=== PATIENT | male | born 1955 | race Caucasian/White ===

== ENCOUNTER 2020-11-20 14:35 | Outpatient (CLI) | payer MEDICARE, SELFPAY ==
--- NOTE | ~2020-11-20 | CT_ITS ---
EXAMINATION:CT lung screening DATE: 11/20/2020 14:56 INDICATION: Personal history of tobacco dependence. Smoker who quit less than 1 year ago with 35 pack year history. TECHNIQUE: Computed tomography (CT) of the chest was performed without intravenous contrast. Automate d exposure control and iterative reconstruction technique were employed. The dose-length product (DLP ) was 473.81 mGy-cm. COMPARISON: Chest CT 06/14/2018 FINDINGS: There is mild atelectasis bilaterally. A calcified left lung nodule is consistent with old granulomatous disease. No pleural effusion. There is a coarse calcification in left thyroid lobe. The heart size is normal. There are coronary artery calcifications. No pericardial effusion. There is mi ld thoracic spondylosis. IMPRESSION: 1. Lung-RADS category 1: Negative. Continue annual screening with noncontrast low-dose chest CT in 12 months. Reviewed, dictated and finalized at location A. IMPRESSION: 1. Lung-RADS category 1: Negative. Continue annual screening with noncontrast l ow-dose chest CT in 12 months.
== END 2020-11-20 14:36 | disposition home or self-care (01) ==
PROVIDERS: PCP Internal Medicine; Visit Provider Internal Medicine
DX: Z12.2 Encounter for screening for malignant neoplasm of respiratory organs (principal); Z87.891 Personal history of nicotine dependence
CPT/HCPCS: 71271

== ENCOUNTER 2021-12-18 23:27 | Inpatient (IN) | payer MEDICARE, SELFPAY ==
--- NOTE | ~2021-12-18 | CT_ITS ---
EXAMINATION: CTA chest PE protocol EXAM DATE: 12/19/2021 12:44 INDICATION: +DDimer, CP . TECHNIQUE: Spiral CTA of the chest (pulmonary arteries) was performed with 100 cc Omnipaque 350 intr avenous contrast injection. Images were acquired during the pulmonary arterial phase. Coronal maxi mum intensity projection 3D-reconstructions were created by the technologist on dedicated workstation . Axial, coronal and sagittal reformatted images were reviewed. The dose-length product (DLP) for t his examination was 999.19 mGy-cm. The exposure was tailored according to patient size (auto mA exp osure control), and iterative reconstruction (ASIR) was used as additional dose reduction technique. Comparison is made to prior examination from 11/20/2020. FINDINGS: Pulmonary arteries are well opacified and without intraluminal filling defects. No thora cic aortic dissection. There is left lower lobe lateral subsegmental opacity measuring about 4 cm wi th some surrounding groundglass margins, appearance is most consistent with pneumonia but follow-up t o resolution is indicated to exclude cancer. This was not present on CT scan 2020. There are other bi lateral perihilar regions of groundglass density consistent with acute infection. There are no pleural or pericardial effusions. There is some endobronchial left basilar debris. Th ere is no mediastinal, hilar or axillary lymphadenopathy. There is no pneumothorax. Heart normal in size. There is mild coronary arterial calcification, arterial sclerosis. There is incompletely imaged partially exophytic mass off of the left kidney anterolaterally, hemorrhagic cyst versus renal cell cancer. There is thoracic spondylosis without osteoblastic or osteolytic lesions identified. IMPRESSION: 1. Incidental incompletely imaged left renal hemorrhagic cyst or cancer. Follow-up CT or MRI abdomen without and with contrast recommended. 2. Multifocal groundglass airspace disease and subsegmental region left lower lobe consolidation. Mo st likely pneumonia. Consider follow-up chest CT in 1-3 months. 3. No pulmonary emboli suspected. Reviewed, dictated and finalized at location B. IMPRESSION: 1. Incidental incompletely imaged left renal hemorrhagic cyst or cancer. Follo w-up CT or MRI abdomen without and with contrast recommended. 2. Multifocal groundglass airspace disease and subsegmental region left lower lobe consolidation. Most likely pneumonia. Consider follow-up chest CT in 1-3 m [facility]. 3. No pulmonary emboli suspected.
--- NOTE | ~2021-12-18 | NM_ITS ---
EXAMINATION: NM rama stress w perfusion DATE: 12/19/2021 14:49 INDICATION: Chest pain. TECHNIQUE: Rest images were obtained following intravenous administration of 9.7 mCi Tc99m tetrofosmi n (Myoview). The patient was infused intravenously with Lexiscan (regadenoson). Then, 32 mCi Tc99m te trofosmin (Myoview) was administered intravenously, and supine and prone stress images were obtained. Data was reconstructed into short axis and horizontal and vertical long axis SPECT images. Gated SPE CT images were also obtained. COMPARISON: Chest CT 12/19/2021 FINDINGS: There is a small, mild, fixed perfusion defect involving mid inferior segment of left ventr icle, consistent with infarct. No reversible boluses suggest ischemia. There is no segmental wall mo tion abnormality. Left ventricular ejection fraction measures >70%. IMPRESSION: 1. Small area of mild infarct involving mid inferior segment of left ventricle. 2. Normal left ventricular ejection fraction measuring >70%. Reviewed, dictated and finalized at location A.
--- NOTE | ~2021-12-18 | XR_ITS ---
XR chest 2V DATE: 12/18/2021 23:54 INDICATION: Chest pain TECHNIQUE: PA and lateral views COMPARISON: 11/20/2020 CT lung screening FINDINGS: Normal heart size. No hilar or mediastinal enlargement. No pulmonary infiltrate or consol idation, pulmonary vascular congestion or pleural effusion or pneumothorax. There is mild dextroscoliosis and degenerative spurring of the thoracic spine. IMPRESSION: No active cardiopulmonary disease Reviewed, dictated and finalized at location A.
--- NOTE | ~2021-12-18 | US_ITS ---
EXAMINATION: US venous doppler [facility] DATE: 12/19/2021 12:56 INDICATION: Chest pain TECHNIQUE: Oh scale images without and with compression and Doppler images of the bilateral lower e xtremity veins were obtained. COMPARISON: 02/15/2018 FINDINGS: The right common femoral vein, profunda femoral vein, femoral vein, popliteal vein, peroneal trunk, p osterior tibial veins, and greater saphenous vein are patent. The left common femoral vein, profunda femoral vein, femoral vein, popliteal vein, peroneal trunk, po sterior tibial veins, and greater saphenous vein are patent. IMPRESSION: 1. Patent bilateral lower extremity veins. No evidence of deep venous thrombosis. Reviewed, dictated and finalized at location A. IMPRESSION: 1. Patent bilateral lower extremity veins. No evidence of deep venous thrombosi s.
--- NOTE | 2021-12-18 23:30 | ECG_ITS ---
Measurements Intervals [place] Rate: 94 P: 62 RI: 148 QRS: 12 QRSD: 90 T: 56 QT: 266 QTc: 333 Interpretive Statements SINUS RHYTHM WITH OCCASIONAL VENTRICULAR PREMATURE COMPLEXES NONSPECIFIC T-WAVE ABNORMALITY ABNORMAL ECG NO PREVIOUS ECG AVAILABLE FOR COMPARISON Electronically Signed On 12-19-2021 15:43:53 CDT by Keo Ochoa M.D.
[2021-12-18 23:32] VITALS: BP 134/80; PULSE 98; RESP 17; TEMP 37.6; O2SAT 94
[2021-12-18 23:36] VITALS: PULSE 97; RESP 13; O2SAT 90
[2021-12-18 23:45] VITALS: PULSE 97; RESP 17; O2SAT 93
[2021-12-18 23:46] VITALS: BP 135/100; PULSE 95; RESP 20; O2SAT 90
[2021-12-18 23:51] LABS: Basophils Percent Auto 0.3 % (0.2-1.2); Eosinophils Absolute Auto 0.1 K/mm3 (0-0.3); Eosinophils Percent Auto 0.8 % (0-4.4); Hematocrit 45.3 % (42.0-52.0); Hemoglobin 14.8 g/dL (14.0-18.0); Immature Granulocyte Absolute 0.09 K/mm3 (0.00-0.031); Immature Granulocyte Percent A 0.6 % (0-0.5); Lymphocytes Absolute Auto 1.83 K/mm3 (0.9-3.2); Lymphocytes Percent Auto 13.2 % (18.3-44.2); Mean Corpuscular HGB Conc 32.7 g/dl (32-36); Mean Corpuscular Hemoglobin 31.2 pg (26-34); Mean Corpuscular Volume 95.6 fl (80-100); Mean Platelet Volume 11.3 fl (7.4-10.4); Monocytes Absolute Auto 1.3 K/mm3 (0.1-0.6); Monocytes Percent Auto 9.3 % (2.6-8.5); Neutrophils Absolute Auto 10.5 K/mm3 (1.3-6.7); Neutrophils Percent Auto 75.8 % (45.5-73.1); Platelet Count Result 206 k/mm3 (150-375); Red Blood Count 4.74 M/mm3 (4.6-6.20); Red Cell Distribution Width 13.6 % (11.5-14.5); White Blood Count 13.9 K/mm3 (4.5-10.0)
[2021-12-19] VITALS (13 sets, daily range): BP systolic 137–182; BP diastolic 61–96; PULSE 76–89; RESP 15–20; TEMP 36.3–36.9; O2SAT 91–94; BMI 37.5; BMI 38.1
--- NOTE | 2021-12-19 | ECHO_ITS ---
Patient Info Name: Denver Beckford Age: 66 years : 1955 Gender: Male Ht: 74 in Wt: 296 lbs BSA: 2.70 m2 HR: 78 bpm BP: 137 / 83 mmHg Heart Rhythm: Sinus Rhythm Exam Date: 12/19/2021 11:45 AM Exam Location: [facility] Pulmonary Patient Status: Inpatient Admit Date: 12/19/2021 Staff Ordering Physician: Keo Ochoa MD Manufacturing Engineering Manager: Hector Giordano, NINO, RT Attending Provider: Saurav Salter MD Referring Physician: Don OVERTON; Exam Type: CA echo doppler color flow Study Info Indications R07.9 - Chest pain, unspecified Complete two-dimensional, color flow and Doppler transthoracic echocardiogram is performed. Summary 1. Complete two-dimensional, color flow and Doppler transthoracic echocardiogram is performed. 2. Left ventricular chamber dimension is normal. 3. Left ventricular systolic function is normal, estimated at 60-65%. 4. There is mildly increased left ventricular wall thickness. 5. The left ventricular diastolic function is grade I diastolic dysfunction. 6. Right ventricular chamber dimension is mildly enlarged. 7. Left atrial chamber dimension is mildly enlarged. 8. There is mild mitral valve regurgitation. 9. There is mild tricuspid valve regurgitation. 10. Dilated inferior vena cava with <50% collapse upon inspiration consistent with elevated right atrial pressure, 15 mmHg. Left Ventricle Left ventricular chamber dimension is normal. Left ventricular systolic function is normal, estimated at 60-65%. There is mildly increased left ventricular wall thickness. The left ventricular diastolic function is grade I diastolic dysfunction. Right Ventricle Right ventricular chamber dimension is mildly enlarged. Right ventricular systolic function is normal. Left Atria Left atrial chamber dimension is mildly enlarged. Right Atria Right atrial chamber dimension is normal. Atrial Septum Intact interatrial septum visualized by color flow imaging. Aortic Valve The aortic valve is trileaflet. There is mild aortic valve sclerosis. There is no aortic valve stenosis. There is trace aortic valve regurgitation. Pulmonic Valve The pulmonic valve is normal. There is no pulmonic valve stenosis. There is trace pulmonic regurgitation. Mitral Valve The mitral valve has normal leaflets. There is no mitral valve stenosis. There is mild mitral valve regurgitation. Tricuspid Valve The tricuspid valve leaflets are normal. There is no significant tricuspid valve stenosis. There is mild tricuspid valve regurgitation. Pericardium/Pleural The pericardium appears normal. There is no pericardial effusion. Inferior Vena Cava Dilated inferior vena cava with <50% collapse upon inspiration consistent with elevated right atrial pressure, 15 mmHg. Aorta The aortic root size at the sinus of Valsalva is normal. Left Ventricular Outflow Tract Name Value Normal LVOT 2D LVOT Diameter 2.0 cm LVOT Doppler LVOT Peak Gradient 9 mmHg LVOT Mean Gradient 5 mmHg LVOT VTI 27 cm LVOT V
[2021-12-19 00:02] LABS: Alanine Aminotransferase 23 U/L (4-50); Albumin Level 4.8 g/dL (3.5-5.1); Alkaline Phosphatase 71 U/L (38-126); Anion Gap 13 mmol/L (8-16); Aspartate Amino Transferase 27 U/L (17-59); Bilirubin,Total 0.9 mg/dL (0.2-1.3); Blood Urea Nitrogen 16 mg/dL (9-20); Calcium 9.6 mg/dL (8.4-10.2); Carbon Dioxide 25 mmol/L (22-30); Chloride 102 mmol/L (98-107); Estimated CRCL calculation 101 ml/min; Estimated Glomerular Filt Rate > 60; Glucose 139 mg/dL (65-110); Lipase 42 U/L (23-300); Potassium 3.2 mmol/L (3.4-5.0); Sodium 140 mmol/L (137-145)
[2021-12-19 00:03] LABS: INR 1.1; Partial Thromboplastin Time 32.8 SECONDS (22.3-36.8); Prothrombin Time 13.4 Seconds (11.1-14.7)
[2021-12-19 00:13] LABS: Troponin I < 0.012 ng/mL (0.000-0.034)
--- NOTE | 2021-12-19 00:25 | ED.CHESTPAIN ---
HPI - Chest Pain General Chief Complaint: Chest Pain Stated Complaint: Chest pain Time Seen by Provider: 12/18/21 23:50 Source: patient Mode of arrival: ambulatory Limitations: no limitations History of Present Illness HPI narrative: 58-year-old male presents emergency room secondary to chest pain. Patient was out playing golf in [place] when he developed some chest discomfort there when he was plan. He is continue to have these episodes of discomfort. Associated with them he gets very short of breath. States she just been feeling fatigued and rundown lately. There is an extensive history of coronary artery disease in his family. Patient has multiple risk factors including obesity, diabetes, hypertension, as well as hypercholesterolemia. He has never had a cardiac work-up or evaluation in the past. He does smoke a cigar a day. States when he gets up and exerts himself he is getting discomfort in his chest. Related Data Home Medications Medication Instructions Recorded Confirmed omega-3 fatty acids 1,000 mg 1,000 mg PO BID 12/08/19 11/06/21 capsule cholecalciferol (vitamin D3) 250 250 mcg PO DAILY 05/16/20 11/06/21 mcg (10,000 unit) capsule Allergies Allergy/AdvReac Type Severity Reaction Status Date / Time Penicillins Allergy Unknown Unknown Verified 12/18/21 23:48 Sulfa (Sulfonamide Allergy Unknown Unknown Verified 12/18/21 23:48 Antibiotics) Review of Systems Review of Systems: CONSTITUTIONAL: Denies fever, chills, or sweats. EYES: Denies visual changes, redness, or discharge. ENT: Denies rhinorrhea, congestion, sore throat, or otalgia. CARDIOVASCULAR: Patient is having episodes of chest pressure and pain. Denies any palpitations or edema. RESPIRATORY: Denies cough. Having shortness of breath associated with chest pain GASTROINTESTINAL: Denies abdominal pain, nausea, vomiting, or diarrhea. GENITOURINARY: Denies dysuria or hematuria. SKIN: Denies rash or itching. MUSCULOSKELETAL: Denies back pain, joint pain, or myalgia. NEUROLOGIC: Denies headache, numbness, or weakness. PSYCHIATRIC: Denies anxiety or depression. [facility] Past Medical History Medical History Actinic keratosis BMI 38.0-38.9,adult BMI 39.0-39.9,adult Depression DM type 2 (diabetes mellitus, type 2) Encounter for Medicare annual wellness exam Encounter for routine adult health examination with abnormal findings Encounter for routine adult health examination without abnormal findings Encounter for special screening examination for neoplasm of prostate Erectile dysfunction Erectile dysfunction of organic origin Follow up HTN (hypertension) Hx of colonic polyps Hyperlipidemia Hypertension Hypogonadism Hypogonadism male Obesity On jail drug therapy VIMAL on CPAP Personal history of nicotine dependence Visual floaters Surgical History Surgical History History of left knee replacement Family History Family History Grandparent Diabetes mellitus Family history of cardiovascular disease Family history of malignant neoplasm Mother Family history of Alzheimer's disease Social History Social History Smoking status: Former smoker Smoking end date: 09/06/16 Exam Narrative: APPEARANCE: Well appearing, no pain or distress, well-nourished. Patient is obese Head normocephalic and atraumatic. EYES: PERRLA/EOMI, conjunctivae very clear. NOSE: Normal with no drainage EARS:TMS clear [place] Oh, with good light reflex. THROAT: Pharynx clear, no exudate. NECK: Supple. No adenopathy, no masses. RESPIRATORY: Airway patent, respirations nonlabored. Clear to auscultation bilaterally, no rales, rhonchi, wheezing. CARDIOVASCULAR: Regular rate and rhythm without murmurs, rubs, or gallops. ABDOMINAL: Soft, nontender, nondist
--- NOTE | 2021-12-19 00:43 | PM.IMHP ---
H&P: HPI History of Present Illness Date/Time: 12/19/21 00:43 Chief Complaint: Chest pain Narrative: This is a 66-year-old male with past medical history significant for obesity, hypertension, tobacco dependence, dyslipidemia. Patient presents to the emergency room due to chest pain localized to the precordial area nonradiating. Patient just came back from a trip to [place]. Pain Hurst remain constant for the last several hours. Patient has a persistent cough productive of clear sputum at times, which is his normal, denies any fevers, any rigors, any chills ,any dizziness ,syncope, near syncope, leg pain ,leg swelling, no PND, no orthopnea ,no nausea, no vomiting, no diarrhea ,no abdominal pain. Preliminary workup has been essentially nonrevealing. Patient has been admitted for further evaluation management and treatment. Review of Systems Review of Systems: Chest pain Constitutional: Constitutional: Denies chills, Denies fever(s), Denies night sweats and Denies weakness Eyes: Eyes: Denies change in vision ENT: Denies dysphagia, Denies vertigo, Denies dizziness, Denies nasal congestion, Denies nasal discharge, Denies nasal obstruction, Denies odynophagia and Denies post nasal drip Cardiovascular: Cardiovascular: Reports chest pain, Denies diaphoresis, Denies pedal edema, Denies claudication, Denies leg edema, Denies lightheadedness, Denies radiating jaw, neck or arm pain, Denies palpitations, Denies dyspnea on exertion, Denies orthopnea and Denies paroxysmal nocturnal dyspnea Respiratory: Respiratory: Denies change in phlegm color and Reports cough Gastrointestinal: Gastrointestinal: Denies abdominal pain, Denies dyspepsia, Denies heartburn, Denies nausea and Denies vomiting Genitourinary: Genitourinary: Denies dysuria Musculoskeletal: Musculoskeletal: Denies back pain, Denies arthralgias, Denies joint swelling and Denies muscle weakness Integumentary/Breasts: Skin/Breast: Denies rash Neurologic: Denies vertigo, Denies dizziness, Denies focal weakness and Denies Sensory deficit (Neuro) Psychiatric: Psychiatric: Reports no additional psychiatric complaints and Reports as per HPI Endocrine: Endocrine: Denies cold intolerance, Denies fatigue, Denies flushing, Denies heat intolerance, Denies polyphagia, Denies polydipsia, Denies polyuria and Denies palpitations Hematologic/Lymphatic: Hematologic/Lymphatic: Reports no additional hematologic/lymphatic complaints and Reports as per HPI Allergic/Immunologic: Allergic/Immunologic: Reports no additional allergic/immunologic complaints and Reports as per HPI [facility] Past Medical History Medical History Actinic keratosis BMI 38.0-38.9,adult BMI 39.0-39.9,adult Depression DM type 2 (diabetes mellitus, type 2) Encounter for Medicare annual wellness exam Encounter for routine adult health examination with abnormal findings Encounter for routine adult health examination without abnormal findings Encounter for special screening examination for neoplasm of prostate Erectile dysfunction Erectile dysfunction of organic origin Follow up HTN (hypertension) Hx of colonic polyps Hyperlipidemia Hypertension Hypogonadism Hypogonadism male Obesity On extermination supervisor drug therapy VIMAL on CPAP Personal history of nicotine dependence Visual floaters Surgical History Surgical History History of left knee replacement Family History Family History Grandparent Diabetes mellitus Family history of cardiovascular disease Family history of malignant neoplasm Mother Family history of Alzheimer's disease Social History Social History Years smoked: 30 Smoking status: Light tobacco smoker Smoking end date: 09/06/16 Alcohol intake: current Drinks per week: 5 Substance use:
[2021-12-19] MEDS: ENOXAPARIN 80 MG/0.8 ML SYRINGE 75 MG SUB-Q (01:04)
[2021-12-19] MEDS: ENOXAPARIN 60 MG/0.6 ML SYRINGE SUB-Q (01:04)
[2021-12-19 06:09] LABS: Troponin I < 0.012 ng/mL (0.000-0.034)
--- NOTE | 2021-12-19 07:21 | ECG_ITS ---
Measurements Intervals [place] Rate: 77 P: 69 [place]: 169 QRS: 40 QRSD: 93 T: 85 QT: 295 QTc: 335 Interpretive Statements SINUS RHYTHM WITH FREQUENT SUPRAVENTRICULAR PREMATURE COMPLEXES SEPTAL MYOCARDIAL INFARCTION , PROBABLY OLD [40+ ms Q WAVE IN V1/V2] NONSPECIFIC T-WAVE ABNORMALITY ABNORMAL ECG COMPARED TO ECG 12/18/2021 23:36:16 MYOCARDIAL INFARCT FINDING NOW PRESENT Electronically Signed On 12-19-2021 15:49:07 CDT by Keo Ochoa M.D.
--- NOTE | 2021-12-19 07:27 | ADMGEN ---
This patient, Denver Beckford, was admitted to IMU Room 203-01 12/18/21 @0130. Patient/family oriented to hospital policies and general routines including ID bracelet, bed and alarms, visiting hours, pain management, procedures, bathroom and other care routines, personal items, smoking policy, room service/diet, and visiting hours. Information on how to activate the Rapid Response Team has been discussed. Patient/Family are encouraged to report perceived risks to care and to ask questions if they do not understand what they are told or what they should do.
[2021-12-19 07:50] LABS: Anion Gap 11 mmol/L (8-16); Blood Urea Nitrogen 16 mg/dL (9-20); Calcium 9.1 mg/dL (8.4-10.2); Carbon Dioxide 28 mmol/L (22-30); Chloride 100 mmol/L (98-107); Estimated CRCL calculation 91 ml/min; Estimated Glomerular Filt Rate > 60; Glucose 131 mg/dL (65-110); Potassium 3.5 mmol/L (3.4-5.0); Sodium 139 mmol/L (137-145)
--- NOTE | 2021-12-19 09:24 | EST_ITS ---
Patient Info Name: Denver Beckford Age: 66 years : 1955 Gender: Male Ht: 74 in Wt: 297 lbs BSA: 2.70 m2 Exam Date: 12/19/2021 1:32 PM Exam Location: [facility] Stress Patient Status: Inpatient Admit Date: 12/19/2021 Staff Ordering Physician: Keo Ochoa MD Attending Provider: Saurav Salter MD Exercise Technologist: Felicia Rene RDCS Nurse: SHERLEY MCKEE NP Exam Type: CA stress rama w NM Study Info Indications R07.9 - Chest pain, unspecified R06.02 - Shortness of breath A regadenoson stress test was performed. Summary 1. Please correlate with nuclear medicine images, reported separately. 2. No abnormal ST-T wave changes with lexiscan. Protocol: Lexiscan Stress ECG Details Stage: REST Duration (min): 5 min : 28 sec HR (bpm): 78 SBP (mmHg): 138 DBP (mmHg): 81 Stage: REST Duration (min): 10 min : 59 sec HR (bpm): 77 SBP (mmHg): 138 DBP (mmHg): 81 Stage: STAGE 1 Duration (min): 0 min : 59 sec HR (bpm): 87 SBP (mmHg): 138 DBP (mmHg): 81 Stage: RECOVERY Duration (min): 1 min : 0 sec HR (bpm): 92 SBP (mmHg): 157 DBP (mmHg): 74 Stage: RECOVERY Duration (min): 2 min : 0 sec HR (bpm): 88 SBP (mmHg): 145 DBP (mmHg): 75 Stage: RECOVERY Duration (min): 3 min : 0 sec HR (bpm): 88 SBP (mmHg): 150 DBP (mmHg): 80 Stage: RECOVERY Duration (min): 3 min : 3 sec HR (bpm): 87 SBP (mmHg): 150 DBP (mmHg): 80 Rest HR: 77 bpm Peak HR: 97 bpm Rest Sys BP: 138 mmHg Peak Sys BP: 157 mmHg Max Pred HR: 152 bpm % Max Pred HR: 64 % Target HR: 129 bpm Max RPP: 15,229 bpm*mmHg BP Response: Normal blood pressure response Termination Reason: Completed protocol Cardiac Symptoms: None Total Time: 1 min : 0 sec Rest [place] BP: 81 mmHg Peak [place] BP: 74 mmHg Total Dose: 0.4 mg Resting ECG Normal sinus rhythm. pacs. INTERNATIONAL ACCOUNT REPRESENTATIVE- Septal infarction. Stress ECG No abnormal ST/T wave changes with exercise. Arrhythmias Frequent PACs. Occasional PVCs. Report Signatures
--- NOTE | 2021-12-19 09:25 | PM.CNCAR ---
Assessment and Plan Assessment and plan (1) Chest pain: Code(s): R07.9 - Chest pain, unspecified Status: Acute Assessment and Plan: Chest pain is atypical but he has nearly every risk factor for coronary disease as he has obesity, hypertension, hyperlipidemia, diabetes, smoking history and a family history of heart disease. Therefore, I think ischemic evaluation is needed. Will order Lexiscan myocardial perfusion study. Aspirin 81 mg p.o. daily also to be started and he should continue his other drug regimen. Given his recent plane ride to [place], cannot exclude pulmonary embolism either. Especially given his dyspnea with exertion, PE should be entertained. Will also order D-dimer (2) Dyspnea on exertion: Code(s): R06.00 - Dyspnea, unspecified Status: Acute Assessment and Plan: He is wheezy. May be simply a COPD exacerbation but will order a 2D echocardiogram with Doppler, check a D-dimer and stress test as above. He may need nebulizer treatment or if his D-dimer is elevated, a CT scan of his chest but this will be deferred to the hospitalist service (3) Hypertension associated with diabetes: Code(s): E11.59 - Type 2 diabetes mellitus with other circulatory complications; I15.2 - Hypertension secondary to endocrine disorders Status: Acute Assessment and Plan: Continue losartan, hydrochlorothiazide (4) Hyperlipidemia associated with type 2 diabetes mellitus: Code(s): E11.69 - Type 2 diabetes mellitus with other specified complication; E78.5 - Hyperlipidemia, unspecified Status: Acute Assessment and Plan: Continue rosuvastatin (5) Tobacco use: Code(s): Z72.0 - Tobacco use Status: Acute Assessment and Plan: Tobacco counseling performed (6) Hypokalemia: Code(s): E87.6 - Hypokalemia Status: Acute Assessment and Plan: KCL 40 mEq p.o. x1 History of Present Illness History of Present Illness Consult date/time: 12/19/21 09:25 Requesting physician: Saurav Salter MD Consult reason: chest pain and shortness of breath Reason For Visit: Chest pain, History of HTN, DM,High Cholesterol Narrative: Date of service 12/19/2021 Reason consultation: Chest pain, shortness of breath Requesting provider: Dr. Salter History: Patient is 66-year-old male who has hypertension, diabetes, hyperlipidemia, smoking history, family history of coronary disease who was on a golfing trip in [facility] recently. While on that trip about 2 days ago he started developing chest pain and dyspnea with activity. He would be short of breath walking to and from his golf ball from the golf cart. He states that his shortness of breath would not occur at the same time as chest pain but he was also having chest pain. He describes anterior chest pain radiating to his back. Chest pain lasts for 2-10 minutes at a time. He was sometimes take some slow deep breaths and his symptoms would improve. Chest pain was not pleuritic. Get chest pain episodes about 2-3 times daily over the past couple of days. While on his flight back home yesterday he developed chest pain which did improve with deep breathing. He came straight here after the ER for further workup evaluation and treatment. He has ruled out for myocardial infarction. EKG is not remarkable that he does have some occasional PVCs. He denies any recent syncope, presyncope, paroxysmal nocturnal dyspnea, orthopnea, edema or palpitations. He is not usually short of breath with activity here Review of Systems Review of Systems: All systems reviewed & are unremarkable except as noted in HPI and below Constitutional: Constitutional: Denies weakness Eyes: Eyes: Denies blurry vision ENT: Reports Normal hearing present Cardiovascular: Cardiovascular: Reports chest pain and Denies leg edema Respiratory: Respiratory: Reports dyspnea on exertion Gastrointestinal: Gastrointestinal: Denies abdominal pain
[2021-12-19] MEDS: POTASSIUM CHLORIDE 20 MEQ TABLET 40 MEQ PO (09:41)
[2021-12-19] MEDS: ROSUVASTATIN 10 MG TABLET 20 MG PO (09:58)
[2021-12-19] MEDS: ASPIRIN 81 MG ENTERIC TABLET PO (09:59)
[2021-12-19] MEDS: ESCITALOPRAM OXALATE 10 MG TABLET 20 MG PO (09:59)
[2021-12-19 10:17] LABS: D Dimer 0.69 ug/mL (<0.48)
--- NOTE | 2021-12-19 11:08 | PM.IMPN ---
Progress Note: A&P Assessment and Plan (1) Chest pain: Code(s): R07.9 - Chest pain, unspecified Status: Acute (2) VIMAL on CPAP: Code(s): G47.33 - Obstructive sleep apnea (adult) (pediatric); Z99.89 - Dependence on other enabling machines and devices Status: Acute (3) Obesity: Code(s): E66.9 - Obesity, unspecified Status: Acute (4) DM type 2 (diabetes mellitus, type 2): Qualifiers: Diabetes mellitus complication status: without complication Diabetes mellitus maxillofacial pathology insulin use: without maxillofacial pathology use Qualified Code(s): E11.9 - Type 2 diabetes mellitus without complications Code(s): E11.9 - Type 2 diabetes mellitus without complications Status: Acute (5) Hypertension: Qualifiers: Hypertension type: essential hypertension Qualified Code(s): I10 - Essential (primary) hypertension Code(s): I10 - Essential (primary) hypertension Status: Acute (6) Hypokalemia: Code(s): E87.6 - Hypokalemia Status: Acute (7) Dyspnea on exertion: Code(s): R06.00 - Dyspnea, unspecified Status: Acute Additional Plan Patient has been admitted to the IMU. Troponin negative x2. EKG showing no acute findings. Patient does have multiple risk factors for cardiac ischemia however. Cardiology has been consulted. Continue aspirin and Crestor. Blood pressure was elevated earlier but improved now. Will clarify his home antihypertensive medication regiment and resume these. Potassium has been replaced. Will resume noninvasive ventilation. Patient is wheezing and may have underlying asthma or emphysema. Chest x-ray is clear. He does have a history of smoking. Add albuterol inhaler. Last A1c done recently was 7.3. He was educated about the benefits of adhering to a healthy lifestyle. D-dimer was checked and is positive. Given his recent travels, will check ultrasound of the lower extremities and CTA of the chest. Stress test has been ordered and will follow up on this result. Further recommendation as course dictates. Subjective Date/time seen: 12/19/21 11:08 Interval history: 66yo male with VIMAL, DM and HTN here for chest pain. Patient feels well today. No chest pain or short of breath. No history of emphysema. No calf pain. He was short of breath at the time of the CP but no pleuritic pain. No history of VTE. No diaphoresis or nausea. He has had recent lab work from his PCP that showed good [id number] numbers. He no longer smokes. states patient does wheeze at time. Exam Narrative: AF 97.7 137/83 78 17 94% ra Gen - NARD lying semi recumbent bed Chest -mild diffuse end-expiratory wheezes. Prolonged respiratory phase. CV - RRR S1/S2. Telemetry showing occasional sinus dysrhythmia Abd -soft. Obese. Nontender. Positive bowel sounds. Ext - No pedal edema Psych - Nml mood and affect Skin - Warm and dry Objective Data Vital Signs Vital Signs: Vital Signs - 24 hr 12/18/21 23:32 12/18/21 23:36 12/18/21 23:45 Temperature 99.6 F Pulse Rate 98 97 97 Respiratory Rate 17 13 17 Blood Pressure 134/80 Pulse Oximetry 94 90 93 12/18/21 23:46 12/19/21 00:13 12/19/21 00:23 Temperature Pulse Rate 95 85 84 Respiratory Rate 20 16 15 Blood Pressure 135/100 H Pulse Oximetry 90 91 91 12/19/21 00:32 12/19/21 00:48 12/19/21 01:30 Temperature 98.4 F Pulse Rate 87 89 84 Respiratory Rate 19 18 18 Blood Pressure 182/84 H Pulse Oximetry 93 91 93 12/19/21 04:00 12/19/21 06:00 12/19/21 08:00 Temperature 97.9 F 97.7 F Pulse Rate 80 80 82 Respiratory Rate 20 17 Blood Pressure 138/61 137/83 Pulse Oximetry 91 94 12/19/21 08:33 Temperature 97.7 F Pulse Rate 82 Respiratory Rate 17 Blood Pressure 137/83 Pulse Oximetry 94 Intake/Output Intake/Output: Intake & Output 12/16/21 12/17/21 12/18/21 12/19/21 23:59 23:59 23:59 23:59 Intake Total 0 Balance 0 Meds/Results Medic
--- NOTE | 2021-12-19 17:38 | PM.DS ---
DS: Admitting Diagnosis Discharge Date 12/19/21 Admitting Diagnosis Chest pain DS: Discharge Diagnosis Discharge Diagnosis (1) Chest pain: Code(s): R07.9 - Chest pain, unspecified Status: Acute (2) Pneumonia: Code(s): J18.9 - Pneumonia, unspecified organism Status: Acute (3) VIMAL on CPAP: Code(s): G47.33 - Obstructive sleep apnea (adult) (pediatric); Z99.89 - Dependence on other enabling machines and devices Status: Acute (4) Obesity: Code(s): E66.9 - Obesity, unspecified Status: Acute (5) DM type 2 (diabetes mellitus, type 2): Qualifiers: Diabetes mellitus complication status: without complication Diabetes mellitus emt intermediate insulin use: without nursing home use Qualified Code(s): E11.9 - Type 2 diabetes mellitus without complications Code(s): E11.9 - Type 2 diabetes mellitus without complications Status: Acute (6) Hypertension: Qualifiers: Hypertension type: essential hypertension Qualified Code(s): I10 - Essential (primary) hypertension Code(s): I10 - Essential (primary) hypertension Status: Acute (7) Hypokalemia: Code(s): E87.6 - Hypokalemia Status: Acute (8) Renal cyst: Code(s): N28.1 - Cyst of kidney, acquired Status: Acute DS: Summary Hospital Course Reason for hospitalization: 66yo male with VIMAL, DM and HTN here for chest pain. Please see H&P for details. Hospital Course: Patient was admitted to the IMU. Troponin negative x2. EKG showing normal sinus rhythm with occasional PVCs and nonspecific T-wave changes. Cardiology has been consulted. We continued aspirin and Crestor. Blood pressure was elevated earlier but improved. We clarified his home antihypertensive medication regiment and resumed these. Potassium was replaced. We ordered noninvasive ventilation. Patient was wheezing and may have underlying asthma or emphysema. Chest x-ray was clear. He does have a history of smoking. We added albuterol inhaler. Last A1c done recently was 7.3. He was educated about the benefits of adhering to a healthy lifestyle. D-dimer was checked and was elevated. Echo showing EF 60-65% and Grade i diastolic dysfunction and mildly enlarged right ventricle and elevated RA pressures. Given his Echo results and his recent travels, we checked ultrasound of the lower extremities that was negative fro DVT. CTA of the chest was negative for PE but did show an incidental incompletely imaged left renal hemorrhagic cyst or cancer and multifocal groundglass airspace disease and subsegmental region left lower lobe consolidation; most likely pneumonia. Jeaneth was seen by Cardiology and a Lexiscan stress test was ordered showing no ST-T wave changes with a small area of mild infarct involving the mid-inferior segment of LV. Patient overall did well and was able to be discharged home on 12/19/21 Status at Discharge Cognitive/behavioral status at discharge: Stable Time Spent with Patient Time attestation: Total time spent providing and/or coordinating discharge services: 40 minutes Time spent: Greater than 30 minutes Exam Narrative: AF 97.7 137/83 78 17 94% ra Gen - NARD lying semi recumbent bed Chest -mild diffuse end-expiratory wheezes. Prolonged respiratory phase. CV - RRR S1/S2. Telemetry showing occasional sinus dysrhythmia Abd -soft. Obese. Nontender. Positive bowel sounds. Ext - No pedal edema Psych - Nml mood and affect Skin - Warm and dry DS: Data Data Completed and Pending Labs on day of discharge: Labs from last 24 hours 12/19/21 12/19/21 12/19/21 09:34 05:33 05:33 WBC RBC Hgb Hct MCV MCH MCHC RDW Plt Count MPV Immature Gran % (Auto) Neut % (Auto) Lymph % (Auto) Rowan % (Auto) Eos % (Auto) Baso % (Auto) Lymph # (Auto) Rowan # (Auto) Eos # (Auto) Baso # (Auto) Abs Immat Gran (auto) Absolute
== END 2021-12-19 18:35 | disposition home or self-care (01) | DRG 313 ==
LOC: ANHED 12-19 00:39 → ANH3MEDSUR 12-19 00:54 → ANHIMU 12-19 07:49
PROVIDERS: Internal Medicine Cardiovascular Disease; Admitting Provider Internal Medicine; Emergency Provider Emergency Medicine; PCP Internal Medicine; Visit Provider Internal Medicine
DX: R07.89 Other chest pain (principal); J18.9 Pneumonia, unspecified organism; G47.33 Obstructive sleep apnea (adult) (pediatric); E87.6 Hypokalemia; E11.59 Type 2 diabetes mellitus with other circulatory complications; I10 Essential (primary) hypertension; E11.69 Type 2 diabetes mellitus with other specified complication; E78.5 Hyperlipidemia, unspecified; N28.1 Cyst of kidney, acquired; I49.3 Ventricular premature depolarization; F32.A Depression, unspecified; E66.9 Obesity, unspecified; Z68.37 Body mass index [BMI] 37.0-37.9, adult; Z96.652 Presence of left artificial knee joint; Z87.891 Personal history of nicotine dependence; Z79.82 Long term (current) use of aspirin
CPT/HCPCS: 36415; 71046; 71275; 78452; 80048; 80053; 83690; 83735; 84484; 85025; 85380; 85610; 85730; 93005; 93017; 93306; 93970; 96372; 99285; A9270; A9502; J1650; J2785; Q9967

== ENCOUNTER 2022-02-12 13:47 | Outpatient (CLI) | payer MEDICARE, SELFPAY ==
--- NOTE | ~2022-02-12 | XR_ITS ---
XR chest 2V 02/12/2022 14:16 Indication: Cough Procedure: PA and lateral views of the chest Comparison: 12/18/2021 Findings: Heart size normal. No focal air space disease, pulmonary edema, pleural effusion or suspect ed pneumothorax. No acute osseous abnormality. Impression: 1: No acute cardiopulmonary disease. Reviewed, dictated and finalized at location B. Impression: 1: No acute cardiopulmonary disease.
== END 2022-02-12 13:48 | disposition home or self-care (01) ==
LOC: ANHIMG 13:59
PROVIDERS: PCP Internal Medicine; Visit Provider Internal Medicine
DX: R05.9 Cough, unspecified (principal)
CPT/HCPCS: 71046

== ENCOUNTER 2022-03-31 13:32 | Outpatient (CLI) | payer MEDICARE, SELFPAY ==
--- NOTE | ~2022-03-31 | CT_ITS ---
EXAMINATION: CTA brain carotid DATE: 04/01/2022 15:58 CDT INDICATION: Chronic headache and facial pain TECHNIQUE: Computed tomographic angiography (CTA) of the head was performed with 100 mL Omnipaque-350 intravenous contrast. CTA of the neck was performed with intravenous contrast. The dose-length produ ct was 1812.79 mGy-cm. Maximum intensity projection and volume rendered 3D-reconstructions were creat ed by the technologist on a separate workstation. Automated exposure control and iterative reconstruc tion technique were employed. COMPARISON: None. FINDINGS: HEAD CTA: No acute intracranial hemorrhage, infarction, mass or mass effect. No ventriculomegaly or m idline shift. Basilar cisterns are patent. There is atherosclerosis of the aorta and great vessels. T here is a dominant right vertebral artery. There is atherosclerosis of the cavernous sinuses. The ant erior, middle and posterior cerebral arteries are symmetric without significant stenosis, occlusion o r aneurysm. NECK CTA: There is atherosclerosis of the aorta and great vessels without evidence for dissection in the limited visualization of the aorta. There is atherosclerosis of the distal common carotid arterie s just prior to the bifurcation. The right thyroid lobe is enlarged with heterogeneous enhancement. C annot not exclude small masses. Consider correlation with thyroid ultrasound. Lung apices are unremar kable. There is less than 10% stenosis of the proximal right internal carotid artery relative to normal dist al artery lumen diameter (NASCET criteria). There is 25% stenosis of the proximal left internal carot id artery relative to normal distal artery lumen diameter. IMPRESSION: 1. Less than 10% stenosis of the proximal right internal carotid artery relative to normal distal art cristóbal lumen diameter (NASCET criteria). 2. 25% stenosis of the proximal left internal carotid artery relative to normal distal artery lumen d iameter. 3: No acute intracranial abnormality. No significant abnormality of the intracranial arteries. Reviewed, dictated and finalized at location A. IMPRESSION: 1. Less than 10% stenosis of the proximal right internal carotid artery relativ e to normal distal artery lumen diameter (NASCET criteria). 2. 25% stenosis of the proximal left internal carotid artery relative to normal distal artery lumen diameter. 3: No acute intracranial abnormality. No significant abnormality of the intracr anial arteries.
--- NOTE | ~2022-03-31 | CT_ITS ---
EXAMINATION: CTA chest PE abdomen DATE: 03/31/2022 14:22 INDICATION: Lung nodule, renal cyst TECHNIQUE: Computed tomography angiography (CTA) of the chest was performed with 70 mL Omnipaque-350 intravenous contrast timed to evaluate the pulmonary arteries. Subsequent postcontrast images of the abdomen are obtained. Coronal maximum intensity projection 3D-reconstructions were created by the juan hnologist. The dose-length product (DLP) was 2734.85 mGy-cm. Automated exposure control and iterative reconstruction technique were employed. COMPARISON: 12/19/2021, 11/20/2020, 06/14/2018 FINDINGS: CTA CHEST: The pulmonary arteries are well-opacified. No pulmonary embolism is identified. A calcifi ed nodule of the left upper lobe is consistent with old granulomatous disease. The lungs are free of acute opacities. No pleural effusion or pneumothorax. No pathologically enlarged thoracic lymph nodes are identified. The heart size is normal. There is moderate thoracic spondylosis. ABDOMEN/PELVIS CT: There is an 8 mm cyst of the liver. The spleen, pancreas, gallbladder, and adrenal glands are normal. There is a 2.6 cm mass of the left kidney upper pole without significant enhancem ent after contrast administration, consistent with a cyst. A 9 mm cyst is also noted in the left kidn ey. The spleen, pancreas, gallbladder, and adrenal glands are normal. The right kidney is unremarkabl e. There are no pathologically enlarged abdominal lymph nodes. There is calcified atherosclerosis of the aorta and many of the other arteries. The appendix is normal. IMPRESSION: 1. No pulmonary embolism or acute cardiopulmonary abnormality. 2. Stable cyst of the left kidney upper pole. Reviewed, dictated and finalized at location B.
== END 2022-03-31 13:33 | disposition home or self-care (01) ==
PROVIDERS: PCP Internal Medicine; Visit Provider Internal Medicine
DX: R91.1 Solitary pulmonary nodule (principal); R51.9 Headache, unspecified; N28.1 Cyst of kidney, acquired; I65.23 Occlusion and stenosis of bilateral carotid arteries
CPT/HCPCS: 70496; 70498; 71275; 74160; Q9967

== ENCOUNTER 2022-09-03 13:33 | Outpatient (CLI) | payer MEDICARE, SELFPAY ==
--- NOTE | ~2022-09-03 | XR_ITS ---
EXAMINATION: XR chest 2V DATE: 09/03/2022 14:04 INDICATION: Cough, unspecified. TECHNIQUE: Frontal and lateral views of the chest were obtained on 3 radiographs. COMPARISON: Chest 2 views 02/12/2022, chest CT 03/31/2022 FINDINGS: The chest demonstrates clear lungs without pneumonia, pleural effusion, or pneumothorax. Th e heart size is normal. IMPRESSION: 1. No acute cardiopulmonary disease. Reviewed, dictated and finalized at location A. CTOR BROADCAST
[2022-09-03 15:09] LABS: Basophils Percent Auto 0.6 % (0.2-1.2); Eosinophils Absolute Auto 0.3 K/mm3 (0-0.3); Hematocrit 50.7 % (42.0-52.0); Hemoglobin 16.6 g/dL (14.0-18.0); Immature Granulocyte Absolute 0.03 K/mm3 (0.00-0.031); Immature Granulocyte Percent A 0.5 % (0-0.5); Lymphocytes Absolute Auto 1.72 K/mm3 (0.9-3.2); Mean Corpuscular HGB Conc 32.7 g/dl (32-36); Mean Corpuscular Hemoglobin 31.5 pg (26-34); Mean Corpuscular Volume 96.2 fl (80-100); Mean Platelet Volume 11.6 fl (7.4-10.4); Monocytes Absolute Auto 0.9 K/mm3 (0.1-0.6); Monocytes Percent Auto 13.7 % (2.6-8.5); Neutrophils Absolute Auto 3.4 K/mm3 (1.3-6.7); Neutrophils Percent Auto 53.2 % (45.5-73.1); Platelet Count Result 179 k/mm3 (150-375); Red Blood Count 5.27 M/mm3 (4.6-6.20); Red Cell Distribution Width 13.2 % (11.5-14.5); White Blood Count 6.4 K/mm3 (4.5-10.0)
[2022-09-03 15:52] LABS: Influenza A QL RT-PCR Negative (Negative); Influenza B QL RT-PCR Negative (Negative); SARS-CoV-2 RNA PCR Negative
== END 2022-09-03 13:34 | disposition home or self-care (01) ==
PROVIDERS: PCP Internal Medicine; Visit Provider Internal Medicine
DX: R05.9 Cough, unspecified (principal)
CPT/HCPCS: 36415; 71046; 85025; 87636

== ENCOUNTER 2023-04-28 13:21 | Outpatient (CLI) | payer MEDICARE, SELFPAY ==
--- NOTE | ~2023-04-28 | XR_ITS ---
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 TECHNIQUE: Dorsal palmar, lateral and 2 oblique views of the left third digit were obtained COMPARISON: None FINDINGS: Bone alignment is normal. No fracture. Mild osteoarthritis at the first carpometacarpal and third and fourth proximal interphalangeal joints. Tiny heterotopic ossicle along the ulnar side of the head of the third metacarpal and the region of the ulnar collateral ligament complex which could represent s equela of old trauma. Mild soft tissue swelling about the third proximal interphalangeal joint. IMPRESSION: 1. No acute osseous abnormality. Reviewed, dictated and finalized at location A.
== END 2023-04-28 13:22 | disposition home or self-care (01) ==
PROVIDERS: PCP Internal Medicine; Visit Provider Plastic Surgery
DX: M19.041 Primary osteoarthritis, right hand (principal)
CPT/HCPCS: 73140

== ENCOUNTER 2024-09-27 11:06 | Outpatient (CLI) | payer MEDICARE, BC, SELFPAY ==
--- NOTE | ~2024-09-27 | US_ITS ---
EXAMINATION: US carotid duplex BI DATE: 09/27/2024 11:47 INDICATION: Syncope and collapse. TECHNIQUE: Grayscale, color Doppler, and pulsed Doppler images of the cervical carotid arteries were obtained. The degree of vessel stenosis is placed in one of the following categories: normal, <50%, 5 0-69%, >=70% but less than near-occlusion, near-occlusion, or total occlusion. Note that percent sten osis relative to normal distal artery lumen diameter is indirectly measured from velocity measurement s as described by Phillip, et al. Radiology 2003; 229:340-346. COMPARISON: CT 03/31/2022 FINDINGS: RIGHT: The right common carotid artery (CCA) peak systolic velocity (PSV) is 58 cm/s. The right internal car otid artery (ICA) PSV is 65 cm/s. The right ICA end-diastolic velocity (EDV) is 21 cm/s. The right IC A/CCA PSV ratio is 1.1. Grayscale and color Doppler images yield an estimate of <50% diameter reducti on from plaque in the ICA. There is antegrade flow in the right vertebral artery. LEFT: The left CCA PSV is 55 cm/s. The left ICA PSV is 71 cm/s. The left ICA EDV is 28 cm/s. The left ICA/C CA PSV ratio is 1.3. Grayscale and color Doppler images yield an estimate of <50% diameter reduction from plaque in the ICA. There is antegrade flow in the left vertebral artery. IMPRESSION: 1. <50% stenosis in the right internal carotid artery. 2. <50% stenosis in the left internal carotid artery. Reviewed, dictated and finalized at location B. CRIB MANAGER
--- OUTSIDE RECORDS SUMMARY | 2024-09-28 23:46 | XMS_ITS | Referral Summary ---
Author Organization [facility] Address [address] [place] [address] Care Team Providers Care Egg Tester Name Role Phone Mike Parekh MD Primary Care Provider [phone] Source Comments [facility],non-owned Affiliates and Associated Physician Practices is amultiple site organization consisting of ambulatory clinics and hospital sitesin [place], [place], [place] and [place]. This disclosure is being madepursuant to the Care Everywhere program and may not contain all information available regarding this patient. Last updated 18.[facility] Immunizations Name Administration Dates Next Due iNFLUENZA VACCINE, RECOM-VALENZUELA, QUADR. (FLUBLOCK QUADRIVALENT; 18Y+) (RIV4) 07/02/2018 Social History Tobacco Use Types Packs/Day Years Used Date Smoking Tobacco: Never Assessed Sex and Gender Information Value Date Recorded Sex Assigned at Not on file Gender Identity Not on file Sexual Orientation Not on file Plan of Treatment Not on file Care Teams Egg Tester Relationship Specialty Start Date End Date Mike Parekh MD [address] [place] [id number] PCP - General 09/28/19
--- OUTSIDE RECORDS SUMMARY | 2024-09-28 23:46 | XMS_ITS | Clinical Summary ---
Author Organization [facility] Address [address] [place] [address] Care Team Providers Care Cash Management Specialist Name Role Phone Mike Parekh MD Primary Care Provider [phone] Source Comments [facility],non-owned Affiliates and Associated Physician Practices is amultiple site organization consisting of ambulatory clinics and hospital sitesin [place], [place], [place] and [place]. This disclosure is being madepursuant to the Care Everywhere program and may not contain all information available regarding this patient. Last updated 18.[facility] Immunizations Name Administration Dates Next Due iNFLUENZA VACCINE, RECOM-VALENZUELA, QUADR. (FLUBLOCK QUADRIVALENT; 18Y+) (RIV4) 07/02/2018 Social History Tobacco Use Types Packs/Day Years Used Date Smoking Tobacco: Never Assessed Sex and Gender Information Value Date Recorded Sex Assigned at Not on file Gender Identity Not on file Sexual Orientation Not on file Plan of Treatment Health Maintenance Due Date Last Done Comments COLOGUARD (AGES 45-75) - COL ON CA SCREENING 1953 COLON MONITORING 1953 COLONOSCOPY - COLON CA SCREENING 1953 CT COLONOGRAPHY - COLON CA SCREENING 1953 Colorectal Cancer Screening 1953 FIT - COLON CA SCREENING 1953 FLEX SIG - COLON CA SCREENING 1953 LIPID TESTING 1953 MEDICARE AWV ? 12 MONTHS 1953 HEPATITIS C SCREENING 11/13/1971 DTAP/TDAP/TD VACCINES (1 - Tdap) 1972 PNEUMOCOCCAL VACCINE 50+ (1 of 1 - PCV) 11/18/2003 ZOSTER VACCINE (1 of 2) 11/18/2003 COVID-19 VACCINE (2023-2 5 season) 2024 INFLUENZA VACCINE (#1) 2024 07/02/2018 DEPRESSION SCREENING 09/06/2024 Respiratory Syncytial Virus (RSV) Vaccine Pt: or over 60 yrs (1 - 1-dose 75+ series) 2028 HEPATITIS B VACCINE Aged Out No longe r eligible based on patient's age to complete this topic HIB VACCINE Aged Out No longer eligi ble based on patient's age to complete this topic HPV VACCINE Aged Out No longer eligi ble based on patient's age to complete this topic MENINGOCOCCAL (Group B) VACCINE Aged Out No longer eligible based on patient's age to complete this topic MENINGOCOCCAL VACCINE Aged Out No jennifer elías eligible based on patient's age to complete this topic Care Teams Cash Management Specialist Relationship Specialty Start Date End Date Mike Parekh MD [address] [place] [id number] PCP - General 09/28/19
--- OUTSIDE RECORDS SUMMARY | 2024-09-28 23:47 | XMS_ITS | Referral Summary ---
Author Organization [facility] [address] Address [address] [place] [address] Care Team Providers Care Real Estate Acquisition Analyst Name Role Phone Dalton Hoover MD Primary Care Provider [phone] Allergies Active Allergy Reactions Criticality Noted Date Comments Sulfanilamide Active Problems Problem Noted Date Diagnosed Date Polymyalgia rheumatica (CMS/HCC) 07/27/2013 Overview (12/12/2016): PMR (polymyalgia rheumatica) Hypertension 11/11/2012 Overview (12/09/2016): Hypertension Social History Tobacco Use Types Packs/Day Years Used Date Smoking Tobacco: Former Cigarettes Q uit: 09/06/2007 Comments:Smoking History Pac ks/day: 1 Packs Alcohol Use Standard Drinks/Week Comments Yes 0 (1 standard drink = 0.6 oz pur e alcohol) Sex and Gender Information Value Date Recorded Sex Assigned at Not on file 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 Gender Identity Not on file Sexual Orientation Not on file Last Filed Vital Signs Vital Sign Reading Time Taken Comments Blood Pressure 150/88 12/08/2013 2:02 PM CDT Pulse 96 12/08/2013 2:02 PM CDT Temperature - - Respiratory Rate - - Oxygen Saturation - - Inhaled Oxygen Concentration - - Weight 130.6 kg (288 lb) 12/08/2013 2:02 PM CDT Height 188 cm (6' 2 ) 12/08/2013 2:02 PM CDT Body Mass Index 36.98 12/08/2013 2:02 PM CDT Plan of Treatment Not on file Insurance [facility] MEDICARE SUPPLEMENT INSURANCE MEDICARE MEDICARE [facility] [place] [address] MEDICARE [facility] MEDICARE SUPPLEMENT INSURANCE Care Teams Real Estate Acquisition Analyst Relationship Specialty Start Date End Date Dalton Hoover MD [address] [place] [address] PCP - General Internal Medicine 04/06/23
--- OUTSIDE RECORDS SUMMARY | 2024-09-28 23:47 | XMS_ITS | Encounter Summary ---
Author Organization [facility] Address [address] [facility] [place] [address] Care Team Providers Care Clinical Trial Specialist Name Role Phone Mike Parekh MD Primary Care Provider [phone] Encounter Details Date Type Department Care Team (Late st Contact Info) Description 09/29/2019 Lab Requisition [facility] [address] [facility], [place] [id number] Denver Cross MD [address] [place] [address] Social History Tobacco Use Types Packs/Day Years Used Date Smoking Tobacco: Never Assessed Sex and Gender Information Value Date Recorded Sex Assigned at Not on file Gender Identity Not on file Sexual Orientation Not on file documented as of this encounter Plan of Treatment Not on file documented as of this encounter Procedures Procedure Name Priority Date/Time Associated Diagnosis Comments DERMATOPATHOLOGY Routine 09/27/2019 12:0 0 AM COMMANDING OFFICER TRAFFIC DIVISION documented in this encounter Results * DERMATOPATHOLOGY (09/27/2019 12:00 AM COMMANDING OFFICER TRAFFIC DIVISION) Case Report Dermatopathology Report ? Case: [id number] ? Authorizing Provider: ??Denver Cross MD ?Collected: ? 09/27/2019 12:00 AM ? Ordering Location: ? [facility] DermPath Lab ?Received: ?09/29/2019 07:47 AM ? Pathologist: ? Inez Reyna MD ? Specimen: ?Skin, above and posterior to right lateral malleolus ? 0 1:33 PM [facility] DERMATOPATHOLOGY LABORATORY Final Diagnosis Specimen A. SKIN, above and posterior to right lateral malleolus: DERMATOFIBROMA (D23.9) HEALING SKIN CHANGES (L90.5) 0 1:33 PM [facility] DERMATOPATHOLOGY LABORATORY Clinical History R/O KA, SCC, BCC, eczema. 0 1:33 PM [facility] DERMATOPATHOLOGY LABORATORY Gross Description Specimen A: Received is one formalin filled container labeled with the patient's name and designated above and posterior to right lateral malleolus. The specimen consists of a shave biopsy measuring [id number]. Jar 0. 0 1:33 PM [facility] DERMATOPATHOLOGY LABORATORY Microscopic Description Specimen A. SKIN, above and posterior to right lateral malleolus: There is epidermal hyperplasia. Within the dermis, there are fibrohistiocytic cells in haphazard array among coarse collagen bundles. There is focal vascular proliferation, fibroblasts, and an edematous stroma. 0 1:33 PM [facility] DERMATOPATHOLOGY LABORATORY Disclaimer An external and internal positive and negative controls are appropriate for the histochemical, immunohistochemical and immunofluorescence stain(s) in this case (if any), except where stated explicitly. The performance characteristics of the stain(s) cited in this report were developed and its performance characteristic determined by the Dermatopathology Laboratory at [facility], directed by Dr. Marcell Pack. These tests need not be, and therefore are not, approved by the [place] Food and Drug Administration. The tests are used for clinical purposes. Billing Codes Specimen Charges Stain Charges 00844 1 0 1:33 PM [facility] DERMATOPATHOLOGY LABORATORY Embedded Images 0 1:33 PM [facility] [employer] DERMATOPATHOLOGY LABORATORY Pathology/Cytolog y TISSUE SPECIMEN FROM SKIN / Unknown 09/27/2019 09/29/2019 7:47 AM COMMANDING OFFICER TRAFFIC DIVISION Denver Cross MD LAB - PATHOLOGY/CYTO LOGY ORDERABLES DERMATOPATHOLOGY LABORATORY [facility] - Department of Dermatology [address] [place] [address] [address] [phone] documented in this encounter Visit Diagnoses Not on filedocumented in this encounter Care Teams Clinical Trial Specialist Relationship Specialty Start Date End Date Mike Parekh MD [address] [place] [address] PCP - General 09/28/19 documented as of this encounter
--- OUTSIDE RECORDS SUMMARY | 2024-09-28 23:47 | XMS_ITS | Clinical Summary ---
Author Organization [facility] [address] Address [address] [place] [address] Care Team Providers Care Object Oriented Programmer Name Role Phone Dalton Hoover MD Primary Care Provider [phone] Allergies Active Allergy Reactions Criticality Noted Date Comments Sulfanilamide Active Problems Problem Noted Date Diagnosed Date Polymyalgia rheumatica (CMS/HCC) 07/27/2013 Overview (12/12/2016): PMR (polymyalgia rheumatica) Hypertension 11/11/2012 Overview (12/09/2016): Hypertension Surgical History Surgery Date Site/Laterality Comments TOTAL KNEE ARTHROPLASTY 2006 left TKR Family History Medical History Relation Name Comments Coronary artery disease Father 2 Patrice nary artery disease; Cause of : Coronary artery disease Hyperlipidemia Mother Hyperlipidemi a; Relation Name Status Comments Father 1 (Age 77) Father 2 Mother Social History Tobacco Use Types Packs/Day Years Used Date Smoking Tobacco: Former Cigarettes Q uit: 09/06/2007 Comments:Smoking History Pac ks/day: 1 Packs Alcohol Use Standard Drinks/Week Comments Yes 0 (1 standard drink = 0.6 oz pur e alcohol) Sex and Gender Information Value Date Recorded Sex Assigned at Not on file Legal Sex Male 2:46 AM ESTABLISHMENT GUIDE Gender Identity Not on file Sexual Orientation Not on file Obstetrics History Last Filed Vital Signs Vital Sign Reading [...] 12/08/2013 2:02 PM CDT Plan of Treatment Health Maintenance Due Date Last Done Comments Colon Cancer Screening-Colonoscopy 1955 Depression Screening 1955 Fall Risk Assessment 1955 Hepatitis C Screening 1955 DTaP/Tdap/Td Vaccine (1 - Tdap) 1964 Hepatitis B Screening 11/18/1971 Zoster Vaccine (1 of 2) 11/18/2003 Abdominal Aortic Aneurysm (AAA) Screen 2018 Pneumococcal vaccine 65+ (1 of 1 - PCV) 2018 Well Visit 65+ 2018 Influenza Vaccine (#1) 2024 07/02/[address] [place] [id number] [facility] MEDICARE SUPPLEMENT [place] [address] MEDICARE [facility] MEDICARE SUPPLEMENT INSURANCE [facility]ICARE [facility] SUPPLE[facility] INSURANCE Care Teams Object Oriented Programmer Relationship Specialty Start Date End Date Dalton Hoover MD [address] [facility] [address] [place] [address] PCP - General Internal Medicine 04/06/23
--- OUTSIDE RECORDS SUMMARY | 2024-09-28 23:47 | XMS_ITS | Patient Health Summary ---
Author Organization [facility] Address [address] [facility] [place] [address] Care Team Providers Care Robotics Technician Name Role Phone Mike Parekh MD Primary Care Provider [phone] Note from [facility],non-owned Affiliates and Associated Physician Practices is amultiple site organization consisting of ambulatory clinics and hospital sitesin [place], [place], [place] and [place]. This disclosure is being madepursuant to the Care Everywhere program and may not contain all information available regarding this patient. Last updated 18.[facility] Immunizations * iNFLUENZA VACCINE, RECOM-VALENZUELA, QUADR. (FLUBLOCK QUADRIVALENT; 18Y+) (RIV4)(Given 07/02/2018) Social History Tobacco Use Types Packs/Day Years Used Date Smoking Tobacco: Never Assessed Sex and Gender Information Value Date Recorded Sex Assigned at Not on file Gender Identity Not on file Sexual Orientation Not on file Procedures * DERMATOPATHOLOGY(Performed 09/27/2019) * DERMATOPATHOLOGY(Performed 09/30/2016) Results * DERMATOPATHOLOGY (09/27/2019 12:00 AM FREIGHT TRUCKER) Only the most recent of2 resultswithin the time period is included. Case Report Dermatopathology Report ? Case: [id number] ? Authorizing Provider: ??Denver Cross MD ?Collected: ? 09/27/2019 12:00 AM ? Ordering Location: ? [facility] DermPath Lab ?Received: ?09/29/2019 07:47 AM ? Pathologist: ? Inez Reyna MD ? Specimen: ?Skin, above and posterior to right lateral malleolus ? 0 1:33 PM [facility] DERMATOPATHOLOGY LABORATORY Final Diagnosis Specimen A. SKIN, above and posterior to right lateral malleolus: DERMATOFIBROMA (D23.9) HEALING SKIN CHANGES (L90.5) 0 1:33 PM [facility] DERMATOPATHOLOGY LABORATORY Clinical History R/O KA, SCC, BCC, eczema. 0 1:33 PM [facility] DERMATOPATHOLOGY LABORATORY Gross Description Specimen A: Received is one formalin filled container labeled with the patient's name and designated above and posterior to right lateral malleolus. The specimen consists of a shave biopsy measuring [id number]. Jar 0. 0 1:33 PM [facility] DERMATOPATHOLOGY LABORATORY Microscopic Description Specimen A. SKIN, above and posterior to right lateral malleolus: There is epidermal hyperplasia. Within the dermis, there are fibrohistiocytic cells in haphazard array among coarse collagen bundles. There is focal vascular proliferation, fibroblasts, and an edematous stroma. 0 1:33 PM [facility] DERMATOPATHOLOGY LABORATORY Disclaimer An external and internal positive and negative controls are appropriate for the histochemical, immunohistochemical and immunofluorescence stain(s) in this case (if any), except where stated explicitly. The performance characteristics of the stain(s) cited in this report were developed and its performance characteristic determined by the Dermatopathology Laboratory at [facility], directed by Dr. Marcell Pack. These tests need not be, and therefore are not, approved by the [place] Food and Drug Administration. The tests are used for clinical purposes. Billing Codes Specimen Charges Stain Charges 20650 1 0 1:33 PM [facility] DERMATOPATHOLOGY LABORATORY Embedded Images 0 1:33 PM [facility] DERMATOPATH[facility]Y LABORATORY Pathology/Cytolog y TISSUE SPECIMEN FROM SKIN / Unknown 09/27/2019 09/29/2019 7:47 AM FREIGHT TRUCKER Denver Cross MD LAB - PATHOLOGY/CYTO LOGY ORDERABLES DERMATOPATHOLOGY LABORATORY [facility] - Department of Dermatology [address] [place] [address], 5th Floor Lab [address] [phone] Care Teams Robotics Technician Relationship Specialty Start Date End Date Mike Parekh MD [address] [place] [address] PCP - General 09/28/19
== END 2024-09-27 11:07 | disposition home or self-care (01) ==
LOC: ANHIMG 11:07
PROVIDERS: PCP Internal Medicine; Visit Provider Internal Medicine
DX: R55 Syncope and collapse (principal); I10 Essential (primary) hypertension; I51.89 Other ill-defined heart diseases; I65.23 Occlusion and stenosis of bilateral carotid arteries
CPT/HCPCS: 93880

== ENCOUNTER 2024-10-03 08:31 | Outpatient (CLI) | payer MEDICARE, SELFPAY ==
--- NOTE | 2024-10-03 08:40 | ECHO_ITS ---
Patient Info Name: Denver Beckford Age: 68 years : 1955 Gender: Male Ht: 74 in Wt: 275 lbs BSA: 2.59 m2 HR: 90 bpm BP: 170 / 95 mmHg Technical Quality: Poor Exam Date: 10/03/2024 8:53 AM Exam Location: Echo Lab Patient Status: Outpatient Admit Date: 10/03/2024 Staff Ordering Physician: Dalton Hoover MD Clinical Editor: Xavier Barron RDCS Attending Provider: Dalton Hoover MD Referring Physician: Kiko FIGUEROA; Exam Type: CA echo doppler color flow Study Info Indications - COLLAPSE - SYNCOPE Complete two-dimensional, color flow and Doppler transthoracic echocardiogram is performed. Reason for Poor Study: poor echocardiographic windows Summary 1. Complete two-dimensional, color flow and Doppler transthoracic echocardiogram is performed. 2. Technically suboptimal study due to poor sonographic images. 3. Left ventricular chamber dimension is normal. 4. Left ventricular systolic function is normal, estimated at 65-70%. 5. The left ventricular diastolic function is grade I diastolic dysfunction. 6. E/e' 7 is not elevated. 7. The aortic valve is not well visualized. Cannot determine number of aortic valve leaflets. 8. Dilated inferior vena cava with >50% collapse upon inspiration consistent with elevated right atrial pressure, 10 mmHg. Left Ventricle E/e' 7 is not elevated. Technically suboptimal study due to poor sonographic images. Left ventricular chamber dimension is normal. Left ventricular systolic function is normal, estimated at 65-70%. The left ventricular diastolic function is grade I diastolic dysfunction. Right Ventricle Right ventricular systolic function is normal and with normal TAPSE 1.9 cm. Right ventricular chamber dimension is normal. Left Atria Left atrial chamber dimension is normal. Right Atria Right atrial chamber dimension is normal. Aortic Valve The aortic valve is not well visualized. Cannot determine number of aortic valve leaflets. There is no aortic valve stenosis based on normal valve area. There is no aortic valve regurgitation. Pulmonic Valve The pulmonic valve is not well visualized. Mitral Valve There is no mitral valve stenosis. There is no mitral valve regurgitation. Tricuspid Valve There is no tricuspid valve regurgitation. Pericardium/Pleural There is no pericardial effusion. Inferior Vena Cava Dilated inferior vena cava with >50% collapse upon inspiration consistent with elevated right atrial pressure, 10 mmHg. Aorta The aortic root size at the sinus of Valsalva is not well visualized. Left Ventricular Outflow Tract Name Value Normal LVOT 2D LVOT Diameter 2.4 cm LVOT Doppler LVOT Peak Gradient 5 mmHg LVOT Mean Gradient 2 mmHg LVOT VTI 22 cm LVOT VTI/AV VTI Ratio 0.7 LVOT Stroke Volume 99 ml LVOT CO 7.4 l/min LVOT CI 2.8 l/min/m2 Pulmonic Valve Name Value Normal RVOT Doppler RVOT Peak Gradient 2 mmHg PV Doppler PV Peak Gradient 1 mmHg Mitral Valve Name Value Normal MV Doppler MV Decel [place] 380 cm/s2 MV PHT 48 ms MV Area (PHT) 4.6 cm2 4.0-5.0 MV Diastolic Function MV E Peak Velocity 63 cm/s MV A Peak Velocity 92 cm/s MV E/A 0.7 MV Decel Time 167 ms MV Annular TDI MV E/e' (Septal) 6.5 <=8.0 MV E/e' (Lateral) 8.8 <=8.0 MV E/e' (Average) 7.6 Tricuspid Valve Name Value Normal Estimated PAP/RSVP RA Pressure 10 mmHg <=5 Aortic Valve Name Value Normal AV Doppler AV Peak Velocity 167 cm/s AV Peak Gradient 10 mmHg AV Mean Gradient 6 mmHg AV VTI 30 cm AV Area (Cont Eq VTI) 3.3 cm2 >=3.0 AV Area (Cont Eq Yobani) 3.1 cm2 AV Regurgitation 2D LVOT Area 4.4 cm2 Ventricles Name Value Normal LV Dimensions 2D/MM LVOT Diameter 2.4 cm LV Fractional Shortening/Ejection Fraction 2D/MM LV Diastolic Volume (4C MOD) 147 ml LV EF (4C MOD) 79 % LV Diastolic Volume (2C MOD) 34 ml LV EF (2C MOD) 32 % LV Diastolic Volume (BP MOD) 76 ml 62-150 LV Diastolic Volume Index (BP MOD) 29 ml/m2 34-74 LV Systolic Volume (BP MOD) 27 ml 21-61 LV Systolic Volume Index (BP MOD) 10 ml/m2 11-31 LV EF (BP MOD) 65 % 52-72 LV Diastolic Length (4C) 8.7 cm LV Systolic Length (4C) 6.9 cm LV Stroke Volume (4C MOD) 116 ml Atria Name Value Normal LA Dimensions LA Volume (4C A-L) 70 ml LA Volume (BP A-L) 52 ml RA Dimensions RA Area (4C) 18.9 cm2 <=18.0 Report Signatures
--- OUTSIDE RECORDS SUMMARY | 2024-10-03 08:44 | XMS_ITS | Referral Summary ---
Author Organization [facility] Address [address] [facility] [place] [address] Care Team Providers Care Engine Room Helper Name Role Phone Mike Parekh MD Primary Care Provider [phone] Source Comments [facility],non-owned Affiliates and Associated Physician Practices is amultiple site organization consisting of ambulatory clinics and hospital sitesin [place], [place], [place] and [place]. This disclosure is being madepursuant to the Care Everywhere program and may not contain all information available regarding this patient. Last updated 18.[facility] [employer] Immunizations Name Administration Dates Next Due iNFLUENZA VACCINE, RECOM-VALENZUELA, QUADR. (FLUBLOCK QUADRIVALENT; 18Y+) (RIV4) 07/02/2018 Social History Tobacco Use Types Packs/Day Years Used Date Smoking Tobacco: Never Assessed Sex and Gender Information Value Date Recorded Sex Assigned at Not on file Gender Identity Not on file Sexual Orientation Not on file Plan of Treatment Not on file Care Teams Engine Room Helper Relationship Specialty Start Date End Date Mike Parekh MD [address] [place] [address] PCP - General 09/28/19
--- OUTSIDE RECORDS SUMMARY | 2024-10-03 08:44 | XMS_ITS | Patient Health Summary ---
Author Organization [facility] Address [address] [facility] [place] [address] Care Team Providers Care Headhunter Name Role Phone Mike Parekh MD Primary Care Provider [phone] Note from [facility],non-owned Affiliates and Associated Physician Practices is amultiple site organization consisting of ambulatory clinics and hospital sitesin [place], [place], [place] and [place]. This disclosure is being madepursuant to the Care Everywhere program and may not contain all information available regarding this patient. Last updated 18.[facility] Immunizations * iNFLUENZA VACCINE, RECOM-VALENZUELA, QUADR. (FLUBLOCK QUADRIVALENT; 18Y+) (RIV4)(Given 07/02/2018) Social History Tobacco Use Types Packs/Day Years Used Date Smoking Tobacco: Never Assessed Sex and Gender Information Value Date Recorded Sex Assigned at Not on file Gender Identity Not on file Sexual Orientation Not on file Procedures * DERMATOPATHOLOGY(Performed 09/27/2019) * DERMATOPATHOLOGY(Performed 09/30/2016) Results * DERMATOPATHOLOGY (09/27/2019 12:00 AM HADOOP APPLICATION DEVELOPER) Only the most recent of2 resultswithin the time period is included. Case Report Dermatopathology Report ? Case: [id number] ? Authorizing Provider: ??Denver Cross MD ?Collected: ? 09/27/2019 12:00 AM ? Ordering Location: ? [facility] DermPath Lab ?Received: ?09/29/2019 07:47 AM ? Pathologist: ? Inez Reyna MD ? Specimen: ?Skin, above and posterior to right lateral malleolus ? 0 1:33 PM [facility] DERMATOPATHOLOGY LABORATORY Final Diagnosis Specimen A. SKIN, above and posterior to right lateral malleolus: DERMATOFIBROMA (D23.9) HEALING SKIN CHANGES (L90.5) 0 1:33 PM [facility] DERMATOPATHOLOGY LABORATORY Clinical History R/O KA, SCC, BCC, eczema. 0 1:33 PM [facility] DERMATOPATHOLOGY LABORATORY Gross Description Specimen A: Received is one formalin filled container labeled with the patient's name and designated above and posterior to right lateral malleolus. The specimen consists of a shave biopsy measuring [id number]. Jar 0. 0 1:33 PM [facility] DERMATOPATHOLOGY LABORATORY Microscopic Description Specimen A. SKIN, above and posterior to right lateral malleolus: There is epidermal hyperplasia. Within the dermis, there are fibrohistiocytic cells in haphazard array among coarse collagen bundles. There is focal vascular proliferation, fibroblasts, and an edematous stroma. 0 1:33 PM [facility] DERMATOPATHOLOGY LABORATORY Disclaimer An external and internal positive and negative controls are appropriate for the histochemical, immunohistochemical and immunofluorescence stain(s) in this case (if any), except where stated explicitly. The performance characteristics of the stain(s) cited in this report were developed and its performance characteristic determined by the Dermatopathology Laboratory at [facility], directed by Dr. Marcell Pack. These tests need not be, and therefore are not, approved by the [place] Food and Drug Administration. The tests are used for clinical purposes. Billing Codes Specimen Charges Stain Charges 36793 1 0 1:33 PM HADOOP APPLICATION DEVELOPER DERMATOPATHOLOGY LABORATORY Embedded Images 0 1:33 PM HADOOP APPLICATION DEVELOPER DERMATOPATHOLOGY LABORATORY Pathology/Cytolog y TISSUE SPECIMEN FROM SKIN / Unknown 09/27/2019 09/29/2019 7:47 AM HADOOP APPLICATION DEVELOPER Denver Cross MD LAB - PATHOLOGY/CYTO LOGY ORDERABLES DERMATOPATHOLOGY LABORATORY [facility] - Department of Dermatology [address] [place] [address], 5th Floor Lab [address] [phone] Care Teams Headhunter Relationship Specialty Start Date End Date Mike Parekh MD [address] [place] [address] PCP - General 09/28/19
--- OUTSIDE RECORDS SUMMARY | 2024-10-03 08:44 | XMS_ITS | Clinical Summary ---
Author Organization [facility] Address [address] [facility] [place] [address] Care Team Providers Care Appeals Referee Name Role Phone Mike Parekh MD Primary Care Provider [phone] Source Comments [facility],non-owned Affiliates and Associated Physician Practices is amultiple site organization consisting of ambulatory clinics and hospital sitesin [place], [place], [place] and [place]. This disclosure is being madepursuant to the Care Everywhere program and may not contain all information available regarding this patient. Last updated 18.[facility] Immunizations Name Administration Dates Next Due iNFLUENZA [...] age to complete this topic Care Teams Appeals Referee Relationship Specialty Start Date End Date Mike Parekh MD [address] [place] [address] PCP - General 09/28/19
--- OUTSIDE RECORDS SUMMARY | 2024-10-03 08:44 | XMS_ITS | Clinical Summary ---
Author Organization [facility] Address [address] [place] [address]. [place] [address] [place] [address] Care Team Providers Care Trestle Mainternance Laborer Name Role Phone Dalton Hoover MD Primary Care Provider [phone] Social History Tobacco Use Types Packs/Day Years Used Date Smoking Tobacco: Never Assessed Sex and Gender Information Value Date Recorded Sex Assigned at Male 09/29/2024 9:38 AM RADIOLOGY MANAGER Legal Sex Male 9:36 AM RADIOLOGY MANAGER Gender Identity Not on file Sexual Orientation Not on file Plan of Treatment Upcoming Encounters Date Type Department Care Team (Late st Contact Info) Description 10/13/2024 7:15 AM RADIOLOGY MANAGER Appointment [facility] [address] [place], [place] [phone] German Cruz MD [address] [place] [address] Health Maintenance Due Date Last Done Comments Colorectal Cancer Screening Colonoscopy (10 Years) 1955 Hepatitis C 11/18/1971 DTaP, Tdap and Td Vaccines ( 1 - Tdap) 1972 Zoster Vaccines (1 of 2) 11/18/2003 Pneumococcal Vaccine: 65+ Ye ars (1 of 1 - PCV) 2018 COVID-19 Vaccine ( - 2023-2 5 season) 2024 Influenza Adult (#1) 2024 RSV Immunization or 60+ Years (1 - 1-dose 75+ series) 2028 Meningococcal B Vaccine Aged Out No l onger eligible based on patient's age to complete this topic Meningococcal Vaccine Aged Out No jennifer elías eligible based on patient's age to complete this topic RSV Immunizations Under 20 Months Aged Out No longer eligible based on patient's age to complete this topic Care Teams Trestle Mainternance Laborer Relationship Specialty Start Date End Date Dalton Hoover MD [address] [place] [address] PCP - General INTERNAL MEDICINE 09/29/24
--- OUTSIDE RECORDS SUMMARY | 2024-10-03 08:45 | XMS_ITS | Referral Summary ---
Author Organization [facility] [address] Address [address] [place] [address] Care Team Providers Care Ammonium Nitrate Crystallizer Name Role Phone Dalton Hoover MD Primary Care Provider [phone] Allergies Active Allergy Reactions Criticality Noted Date [...] on file Legal Sex Male 2:46 AM TEACHERS' ASSISTANT Gender Identity Not on file Sexual Orientation [...] Plan of Treatment Not on file Insurance [employer] MEDICARE SUPPLEMENT INSURANCE MEDICARE MEDICARE [employer] [place] [address] MEDICARE [employer] MEDICARE SUPPLEMENT INSURANCE Care Teams Ammonium Nitrate Crystallizer Relationship Specialty Start Date End Date Dalton Hoover MD [address] [place] [address] PCP - General Internal Medicine 04/06/23
--- OUTSIDE RECORDS SUMMARY | 2024-10-03 08:45 | XMS_ITS | Encounter Summary ---
Author Organization [facility] Address [address] [place] [address] Care Team Providers Care Youth Coordinator Name Role Phone Mike Parekh MD Primary Care Provider [phone] Encounter Details Date Type Department Care Team (Late st Contact Info) Description 09/29/2019 Lab Requisition [facility] [address] [place] [id number] Denver Cross MD [address] [place] [address] Social History Tobacco Use Types Packs/Day Years [...] Comments DERMATOPATHOLOGY Routine 09/27/2019 12:0 0 AM CHIEF SERVICE OBSERVER documented in this encounter Results * DERMATOPATHOLOGY (09/27/2019 12:00 AM CHIEF SERVICE OBSERVER) Case Report Dermatopathology Report ? Case: [id number] ? Authorizing Provider: ??Denver Cross MD ?Collected: ? 09/27/2019 12:00 AM ? Ordering Location: ? [facility] ?Received: ?09/29/2019 07:47 AM ? Pathologist: ? Inez Reyna MD ? Specimen: ?Skin, above and posterior to right lateral malleolus ? 0 1:33 PM [facility] DER[facility] Final Diagnosis Specimen A. SKIN, above and posterior to right lateral malleolus: DERMATOFIBROMA (D23.9) HEALING SKIN CHANGES (L90.5) 0 1:33 PM [facility] DERMATOPATHOLOGY [facility]ORATORY Clinical History R/O KA, SCC, BCC, eczema. 0 1:33 PM [facility] DERMATOPATHOLOGY [facility]ORATORY Gross Description Specimen A: Received is one formalin filled container labeled with the patient's name and designated above and posterior to right lateral malleolus. The specimen consists of a shave biopsy measuring [id number]. Jar 0. 0 1:33 PM [facility] DERMATOPATHOLOGY [facility]ORATORY Microscopic Description Specimen A. SKIN, above and posterior to right lateral malleolus: There is epidermal hyperplasia. Within the dermis, there are fibrohistiocytic cells in haphazard array among coarse collagen bundles. There is focal vascular proliferation, fibroblasts, and an edematous stroma. 0 1:33 PM [facility] DERMATOPATHOLOGY LABORATORY Disclaimer An external and internal positive and negative controls are appropriate for the histochemical, immunohistochemical and immunofluorescence stain(s) in this case (if any), except where stated explicitly. The performance characteristics of the stain(s) cited in this report were developed and its performance characteristic determined by the Dermatopathology Laboratory at [facility], directed by Dr. Marcell Pack. These tests need not be, and therefore are not, approved by the [place] Food and Drug Administration. The tests are used for clinical purposes. Billing Codes Specimen Charges Stain Charges 62660 1 0 1:33 PM CHIEF SERVICE OBSERVER DERMATOPATHOLOGY LABORATORY Embedded Images 0 1:33 PM CHIEF SERVICE OBSERVER DERMATOPATHOLOGY LABORATORY Pathology/Cytolog y TISSUE SPECIMEN FROM SKIN / Unknown 09/27/2019 09/29/2019 7:47 AM CHIEF SERVICE OBSERVER Denver Cross MD LAB - PATHOLOGY/CYTO LOGY ORDERABLES DERMATOPATHOLOGY LABORATORY [facility] - Department of Dermatology [address] [place] [address] [address] [phone] documented in this encounter Visit Diagnoses Not on filedocumented in this encounter Care Teams Youth Coordinator Relationship Specialty Start Date End Date Mike Parekh MD [address] [place] [address] PCP - General 09/28/19 documented as of this encounter
--- OUTSIDE RECORDS SUMMARY | 2024-10-03 08:45 | XMS_ITS | Clinical Summary ---
Author Organization [facility] [address] Address [address] [place] [address] Care Team Providers Care Campus Recruiting Coordinator Name Role Phone Dalton Hoover MD Primary Care Provider [phone] Allergies Active Allergy Reactions Criticality Noted Date [...] on file Legal Sex Male 2:46 AM TUBE WORKER Gender Identity Not on file Sexual Orientation [...] Vaccine (#1) 2024 07/02/[address] [place] [id number] [facility] MEDICARE SUPPLEMENT [place] [address] MEDICARE [facility] MEDICARE SUPPLEMENT INSURANCE MEDICARE [facility] SUPPLE[facility] INSURANCE Care Teams Campus Recruiting Coordinator Relationship Specialty Start Date End Date Dalton Hoover MD [address] [facility] [address] [place] [address] PCP - General Internal Medicine 04/06/23
== END 2024-10-03 08:32 | disposition home or self-care (01) ==
PROVIDERS: PCP Internal Medicine; Visit Provider Internal Medicine
DX: R55 Syncope and collapse (principal); R42 Dizziness and giddiness; I10 Essential (primary) hypertension; I51.89 Other ill-defined heart diseases
CPT/HCPCS: 93242; 93306